=== PATIENT | female | born 1990 | race Caucasian/White ===

== ENCOUNTER 2016-10-05 19:03 | Emergency (ER) | payer OTHER ==
--- NOTE | 2016-10-05 19:16 | PDOC ---
[id number] No Limitations - History of Present Illness Initial Comments: 10/05/16 19:44 The patient is a 26 year old female, with no significant past medical history, who presents today complaining of 3 days of fever, cough, body aches, and chills. She reports that the dry cough progressed into a productive cough with clear sputum today.She reports throat pain that is burning and radiates to the ears. She has been taking Tylenol every 4 hours to control the fever. Her last dose was at 3:00pm. She has not had a flu shot this year. Denies vomiting, diarrhea. Denies abdominal pain. Allergies: none reported ROS General: +fever, chills, body aches. No weakness, no weight loss HEENT: +sore throat, ear pain. No change in vision. CardioVascular: No chest pain or shortness of breath Respiratory:+productive cough. No wheezing. Gastrointestinal: no nausea, vomiting, diarrhea or constipation, No rectal bleeding Genitourinary: No dysuria, hematuria, or frequency Musculoskeletal: No joint or muscle pain or swelling Neurologic: No headache, vertigo, dizziness or loss of consciousness Psychiatric: nor depression Skin: No rashes or easy bruising Endocrine: no increased thirst or abnormal weight change Allergic: no skin or latex allergy All other systems reviewed and normal Physical Exam General: Well-nourished well-developed individual, no acute distress HEENT: Nasal congestion. Throat: tonsils enlarged with posterior oral pharynx erythema. No exudate. No lymphadenopathy. Neck: Supple, no meningeal signs, no lymphadenopathy Eyes::Pupils equal reactive and round, extraocular motion intact Chest: Nontender to palpation Cardiac: S1-S2 normal, regular rate and rhythm, no murmurs rubs or gallops Respiratory: Lungs clear to auscultation bilateral Extremities: Warm, dry, no cyanosis, clubbing, or edema Skin: No rashes Neuro: Alert and oriented x3, nonfocal exam, grossly intact, normal gait Psych: Normal mood and affect <Landy Xiao - Last Filed: 10/05/16 19:45> - General History Source: Patient Exam Limitations: No Limitations - History of Present Illness Initial Comments: 10/05/16 20:42 A portion of this note was documented by scribe services under my direction. I have reviewed the details of the note, within reason, and agree with the documentation. The case summary and management plan written by me. Assessment and plan: This is a 26-year-old female comes in with upper respiratory/influenza like illness symptoms. Patient did not get her flu shot however she is 3 days postop to symptoms so is not a candidate for Tamiflu. Patient's exam was otherwise normal with the exception of some enlarged tonsils but no exudate or lymphadenopathy. Patient most likely has a viral upper respiratory tract illness but could also have influenza. discussed the importance of supportive care for her symptoms including staying well hydrated, Tylenol or Motrin for fevers and body aches and follow-up with her doctor in 1 week if not improved <Shayy Golden I - Last Filed: 10/05/16 20:44> - General Chief Complaint: Respiratory Stated Complaint: FEVER COUGH SINCE THURSDAY Time Seen by Provider: 10/05/16 19:15 Past History <Landy Xiao - Last Filed: 10/05/16 19:45> - Past Medical History Asthma: Yes Cardiac Disorders: No Diabetes: No HTN: No - Reproductive History (#): 4 Para: 3 Therapeutic (s) & number: Yes (1) - Immunization History Td Vaccination: No TDAP Vaccination: No Immunization Up to Date: No - Psycho/Social/Smoking Cessation Hx Anxiety: No Suicidal Ideation: No Smoking Status: No Smoking History: Never smoked Have you smoked in the past 12 months: No Number of Cigarettes Smoked Daily: 0 Information on smoking cessation initiated: No Hx Alcohol Use: No Drug/Substance Use Hx: No Substance Use Type: None <Shayy Golden I - Last Filed: 10/05/16 20:44> - Past Medical History Allergies/Adverse Reactions: Allergies Allergy/AdvReac Type Severity Reaction Status Date / Time No Known Allergies Allergy Verified 10/05/16 19:05 Home Medications: Ambulatory Orders Benzonatate [Tessalon Pearls -] 100 mg PO TID #21 capsule 10/05/16 *Physical Exam - Vital Signs Last Vital Signs Temp Pulse Resp BP Pulse Ox 98.6 F 86 16 99/70 98 10/05/16 19:06 10/05/16 19:06 10/05/16 19:06 10/05/16 19:06 10/05/16 19:06 <Landy Xiao - Last Filed: 10/05/16 19:45> - Vital Signs Last Vital Signs Temp Pulse Resp BP Pulse Ox 98.6 F 86 16 99/70 98 10/05/16 19:06 10/05/16 19:06 10/05/16 19:06 10/05/16 19:06 10/05/16 19:06 <Shayy Golden I - Last Filed: 10/05/16 20:44> *DC/Admit/Observation/Transfer - Attestations Scribe Attestion: 10/05/16 19:46 Documentation prepared by KATINA Weeks, acting as medical office technologist for Shayy Golden MD. <Landy Xiao - Last Filed: 10/05/16 19:45> - Discharge Dispostion Admit: No <Shayy Golden I - Last Filed: 10/05/16 20:44> Diagnosis at time of Disposition: Influenza-like illness - Discharge Dispostion Disposition: HOME Condition at time of disposition: Stable - Prescriptions Prescriptions: Benzonatate [Tessalon Pearls -] 100 mg PO TID #21 capsule - Patient Instructions Printed Discharge Instructions: Influenza Additional Instructions: For the cough take Tessalon Perles as prescribed. Stay well hydrated and get plenty or rest For the fever body aches and chills alternate Tylenol with ibuprofen every 3 hours if needed Return to the emergency department immediately with ANY new, persistent or worsening symptoms. Continue any medications as previously prescribed by your physician. You should follow up with your primary doctor as soon as possible regarding today's emergency department visit. . Please make sure your doctor reviews the results of your emergency evaluation. Thank you for coming to the Emergency Department today for your care. It was a pleasure to see you today. Please note that your evaluation is INCOMPLETE until you follow-up with your doctor.
[2016-10-05 20:00] VITALS: BP 99/70; PULSE 86; TEMP 98.6; BMI 24.5
== END 2016-10-05 19:27 | disposition home or self-care (01) ==
LOC: FER 19:03
DX: J11.1 Influenza due to unidentified influenza virus with other respiratory manifestations (principal)
CPT/HCPCS: 99281-25

== ENCOUNTER 2017-12-12 14:15 | Emergency (ER) | payer OTHER ==
--- NOTE | 2017-12-12 14:32 | PDOC ---
History of Present Illness - General History Source: Patient Exam Limitations: No Limitations - History of Present Illness Initial Comments: 12/12/17 15:31 The patient is a 27 year old female with no significant PMH who presents to the emergency department with vaginal spotting for 1 day. The patient reports that she went to her first OB appointment yesterday to get blood work. She reports that when she went home she noticed that she had some vaginal discharge that's brown in color. The patient reports that her last period was 5 weeks ago. The patient states that she took a positive at home test 1 week ago. The patient reports that she has had 5 prior pregnancies. She reports that her last was an emergency section but otherwise, all pregnancies were normal and full term. The patient also reports breast pain and cramping. The patient denies any fever, chills, nausea, vomit, diarrhea, constipation or urinary complaints. She denies any chest pain, shortness of breath, headache and dizziness. The patient denies any other complaints. <Darrell Coto - Last Filed: 12/12/17 15:31> <Candy Moya - Last Filed: 12/13/17 07:42> - General Chief Complaint: ,Possible Stated Complaint: , SPOTTING Time Seen by Provider: 12/12/17 14:31 Past History <Darrell Coto - Last Filed: 12/12/17 15:31> - Past Medical History Asthma: Yes Cardiac Disorders: No Diabetes: No HTN: No - Reproductive History (#): 4 Para: 3 Therapeutic (s) & number: Yes (1) - Immunization History Td Vaccination: No TDAP Vaccination: No Immunization Up to Date: No - Suicide/Smoking/Psychosocial Hx Smoking Status: No Smoking History: Never smoked Have you smoked in the past 12 months: No Number of Cigarettes Smoked Daily: 0 Hx Alcohol Use: No Drug/Substance Use Hx: No Substance Use Type: None <Candy Moya - Last Filed: 12/13/17 07:42> - Past Medical History Allergies/Adverse Reactions: Allergies Allergy/AdvReac Type Severity Reaction Status Date / Time No Known Allergies Allergy Verified 12/12/17 14:28 Home Medications: Ambulatory Orders Vit,Steven 74/Iron/Folic [ Low Iron Tablet] 1 each PO DAILY Review of Systems - Review of Systems Able to Perform ROS?: Yes Comments:: 12/12/17 15:31 GENERAL/CONSTITUTIONAL: No fever or chills. No weakness. HEAD, EYES, EARS, NOSE AND THROAT: No change in vision. No ear pain or discharge. No sore throat. CARDIOVASCULAR: No chest pain or shortness of breath. RESPIRATORY:(+)breast pain. No cough, wheezing, or hemoptysis. GASTROINTESTINAL:(+)stomach cramping. No nausea, vomiting, diarrhea or constipation. GENITOURINARY:(+)vaginal spotting . No dysuria, frequency, or change in urination. MUSCULOSKELETAL: No joint or muscle swelling or pain. No neck or back pain. SKIN: No rash NEUROLOGIC: No headache, vertigo, loss of consciousness, or change in strength/ sensation. ENDOCRINE: No increased thirst. No abnormal weight change. HEMATOLOGIC/LYMPHATIC: No anemia, easy bleeding, or history of blood clots. ALLERGIC/IMMUNOLOGIC: No hives or skin allergy. <Darrell Coto - Last Filed: 12/12/17 15:31> *Physical Exam - Vital Signs Last Vital Signs Temp Pulse Resp BP Pulse Ox 99.2 F 70 16 105/74 100 12/12/17 14:25 12/12/17 14:25 12/12/17 14:25 12/12/17 14:25 12/12/17 14:25 - Physical Exam Comments: 12/12/17 15:31 GENERAL: Awake, alert, and fully oriented, in no acute distress HEAD: No signs of trauma EYES: PERRLA, EOMI, sclera anicteric, conjunctiva clear ENT: Auricles normal inspection, hearing grossly normal, nares patent, oropharynx clear without exudates. Moist mucosa NECK: Normal ROM, supple, no lymphadenopathy, JVD, or masses LUNGS: Breath sounds equal, clear to auscultation bilaterally. No wheezes, and no crackles HEART: Regular rate and rhythm, normal S1 and S2, no murmurs, rubs or gallops ABDOMEN: Soft, nontender, normoactive bowel sounds. No guarding, no rebound. No masses EXTREMITIES: Normal range of motion, no edema. No clubbing or cyanosis. No cords, erythema, or tenderness NEUROLOGICAL: Cranial nerves II through XII grossly intact. Normal speech, normal gait SKIN: Warm, Dry, normal turgor, no rashes or lesions noted. <Darrell Coto - Last Filed: 12/12/17 15:31> - Physical Exam Female Pelvic Exam: positive: normal external exam, cervical os closed, normal adnexa, normal size ovaries, vaginal bleeding (trace amount of brownish blood in the vaginal vault). negative: CMT, discharge, lesions, Bartholin mass, Scalene Gland, adnexal tenderness, Urethra, other <Candy Moya - Last Filed: 12/13/17 07:42> ED Treatment Course - LABORATORY CBC & Chemistry Diagram: 12/12/17 14:55 12/12/17 14:55 - ADDITIONAL ORDERS Additional order review: Laboratory Results 12/12/17 12/12/17 15:00 14:55 Sodium 138 Potassium 3.7 Chloride 106 Carbon Dioxide 26 Anion Gap 6 L BUN 9 Creatinine < 0.8 Creat Clearance w eGFR > 60 Random Glucose 103 Calcium 9.0 Total Bilirubin < 0.5 AST 15 ALT 11 Alkaline Phosphatase 68 Total Protein 7.0 Albumin 4.0 Urine HCG, Qual Negative 12/12/17 14:55 RBC 4.36 MCV 84.6 MCHC 34.2 RDW 13.6 MPV 9.0 Neutrophils % 62.0 Lymphocytes % 30.3 Monocytes % 5.5 Eosinophils % 1.7 Basophils % 0.5 <Darrell Coto - Last Filed: 12/12/17 15:31> - LABORATORY CBC & Chemistry Diagram: 12/12/17 14:55 12/12/17 14:55 <Candy Moya - Last Filed: 12/13/17 07:42> Medical Decision Making - Medical Decision Making 12/12/17 16:59 Pt presents to the ED complaining of vaginal spotting. 5 weeks by dates. Differential included ectopic, missed AB, threatened . U preg is negative, serum bhcg is 10. No IUP seen on transvaginal US. Likely missed or very early miscarriage. PAtient has follow up with her Ob on Thursday. Will instruct her to follow up with her OB and to return to the ED for new or worsening symptoms. <Candy Moya - Last Filed: 12/13/17 07:42> *DC/Admit/Observation/Transfer - Attestations Scribe Attestion: 12/12/17 15:32 Documentation prepared by Darrell Coto, acting as medical technologist microbiology for Candy Moya MD. <Darrell Coto - Last Filed: 12/12/17 15:31> - Discharge Dispostion Decision to Admit order: No <Candy Moya - Last Filed: 12/13/17 07:42> Diagnosis at time of Disposition: Dysfunctional uterine bleeding, Miscarriage - Discharge Dispostion Disposition: HOME Condition at time of disposition: Good - Referrals Referrals: Lilly Bynum MD [Primary Care Provider] - - Patient Instructions Printed Discharge Instructions: DI for Miscarriage Additional Instructions: return immediately to the ED for severe pain, heavy vaginal bleeding soaking two pads back to back in an hour for more than 2 hours straight, other new or worsening symptoms. Do not have intercourse or put anything else in your vagina ( ie tampons) until you see your industrial engineer. - Post Discharge Activity
[2017-12-12 14:40] VITALS: BP 105/74; PULSE 70; TEMP 99.2; BMI 24.9
[2017-12-12 15:16] LABS: BASO % 0.5 % (0-2.0); EOS % 1.7 % (0-4.5); HEMATOCRIT 36.9 % (32.4-45.2); HEMOGLOBIN 12.6 GM/dl (10.7-15.3); LYMPH % 30.3 % (8-40); MCH 28.9 pg (25.7-33.7); MCHC 34.2 g/dl (32.0-36.0); MEAN CELL VOLUME 84.6 fl (80-96); MONO % 5.5 % (3.8-10.2); PLATELET COUNT 216 K/MM3 (134-434); RBC 4.36 M/mm3 (3.60-5.2); RDW 13.6 % (11.6-15.6); WHITE BLOOD COUNT 5.4 K/mm3 (4.0-10.8)
[2017-12-12 15:24] LABS: ALK PHOS 68 U/L (32-92); ANION GAP 6 (8-16); BLOOD UREA NITROGEN 9 mg/dl (7-18); CHLORIDE 106 mmol/L (98-107); CO2 26 mmol/L (22-28); GLUCOSE,RANDOM 103 mg/dl (74-106); POTASSIUM 3.7 mmol/L (3.5-5.1); SGOT/AST 15 U/L (10-42); SGPT/ALT 11 U/L (10-40); SODIUM 138 mmol/L (136-145)
[2017-12-12 15:28] LABS: BILIRUBIN,TOTAL < 0.5 mg/dl (0.2-1.0); CREATININE < 0.8 mg/dl (0.6-1.3)
== END 2017-12-12 17:19 | disposition home or self-care (01) ==
LOC: FER 14:15
DX: O03.9 Complete or unspecified spontaneous abortion without complication (principal); N93.8 Other specified abnormal uterine and vaginal bleeding
CPT/HCPCS: 36415; 76817-TC; 80053; 84702; 84703; 85025; 86850; 86900; 86901; 99282-25

== ENCOUNTER 2018-09-18 08:40 | Inpatient (IN) | payer OTHER ==
[2018-09-18] MEDS ORDERED: DEXTROSE 5%-LACTATED RINGERS 1,000 ML IV SCH ×2 (08:50→10:00)
[2018-09-18] MEDS ORDERED: AMPICILLIN - 2 GM in SODIUM CHLORIDE 100 ML IVPB ONE (09:00)
[2018-09-18] MEDS ORDERED: AMPICILLIN SODIUM 2 GM VIAL ONE (09:05)
[2018-09-18 09:26] VITALS: BMI 27.3
[2018-09-18] MEDS ORDERED: LIDOCAINE HCL 1% PRESERVATIVE FREE - 30ML VIAL ONE (09:28)
[2018-09-18] MEDS ORDERED: OXYTOCIN 20 UNITS in 0.9% NS 20 UNIT/1,000 ML INFUS.BAG IV ONE (09:29)
--- NOTE | 2018-09-18 09:58 | HP ---
Past Medical History - Admission Chief Complaint: Labor pain History of Present Illness: 28 yo @ $0 weeks gestation, EDC 09/15/18, admitted for labor pain. History Source: Patient Limitations to Obtaining History: No Limitations - Past Medical History ...: 6 ...Para: 3 ...Term: 3 ...: 0 ...Spon : 1 ...Induced : 1 ...Multiple Gestation: 0 ...EDC by Misti: 09/15/18 - Past Surgical History Past Surgical History: Yes: Hx Myomectomy: No Hx Transabdominal Cerclage: No - Smoking History Smoking history: Never smoked Have you smoked in the past 12 months: No Aproximately how many cigarettes per day: 0 - Alcohol/Substance Use Hx Alcohol Use: No - Social History Usual Living Arrangement: Yes: With Significant Other History of Recent Travel: No Home Medications - Allergies Allergies/Adverse Reactions: Allergies Allergy/AdvReac Type Severity Reaction Status Date / Time No Known Allergies Allergy Verified 09/18/18 09:12 - Home Medications Home Medications: Ambulatory Orders Vit,Steven 74/Iron/Folic [ Low Iron Tablet] 1 each PO DAILY Family Disease History - Family Disease History Family History: Unremarkable Review of Systems - Review of Systems Constitutional: reports: No Symptoms Eyes: reports: No Symptoms HENT: reports: No Symptoms Neck: reports: No Symptoms Cardiovascular: reports: No Symptoms Respiratory: reports: No Symptoms Gastrointestinal: reports: No Symptoms Genitourinary: reports: Pain Breasts: reports: No Symptoms Reported Musculoskeletal: reports: No Symptoms Integumentary: reports: No Symptoms Neurological: reports: No Symptoms Endocrine: reports: No Symptoms Hematology/Lymphatic: reports: No Symptoms Psychiatric: reports: No Symptoms Pain Intensity: 8 Physical Exam - Maternity Vital Signs: Vital Signs Temperature 97.8 F 09/18/18 08:40 Pulse Rate 74 09/18/18 08:40 Respiratory Rate 18 09/18/18 08:40 Blood Pressure 111/61 09/18/18 08:40 O2 Sat by Pulse Oximetry (%) Constitutional: Yes: Well Nourished Eyes: Yes: Conjunctiva Clear HENT: Yes: Atraumatic Neck: Yes: Supple Cardiovascular: Yes: Regular Rate and Rhythm Lungs: Clear to auscultation - Abdominal Exam/OB Number of Fetuses: Single Presentation: Vertex - Vaginal Exam/OB Dilatation (cm): 8 Effacement (%): 100 Presentation: Vertex/Position Station: 0 - Physical Exam ...Motor Strength: WNL Psychiatric: Yes: Alert, Oriented Problem List - Problems (1) Pain during labor Code(s): O99.89 - OTH DISEASES AND CONDITIONS COMPL PREG/CHLDBRTH; R52 - PAIN, UNSPECIFIED Assessment/Plan Active labor Admit to L&D Analgesia as needed Anticipate
[2018-09-18] MEDS ORDERED: BISACODYL 10 MG SUPP.RECT RC PRN (10:01)
[2018-09-18] MEDS ORDERED: WITCH HAZEL 50% (TUCKS) 40 PAD/JAR PAD TP PRN (10:01)
[2018-09-18] MEDS ORDERED: BENZOCAINE 28 GM HEMORRHOIDAL OINTMENT TP PRN (10:01)
[2018-09-18] MEDS ORDERED: BENZOCAINE 20% 57 GM BOTTLE TP PRN (10:01)
[2018-09-18] MEDS ORDERED: METHYLERGONOVINE MALEATE 0.2 MG/1 ML AMP IM PRN (10:01)
--- NOTE | 2018-09-18 10:01 | PN ---
Delivery - Delivery Vaginal Delivery: Spontaneous Type of Anesthesia: Local Episiotomy/Laceration: Perineal Extension/lac, 2nd degree EBL (cc): 250 Delivery, Single - Stages of Labor Date 1st Stage Initiatied: 09/18/18 Time 1st Stage Initiated: 04:00 Date 2nd Stage Initiated: 09/18/18 Time 2nd Stage Initiated: 09:20 Date of Delivery: 09/18/18 Time of Delivery: 09:22 Time Placenta Delivered: :25 - Condition of Binder Stripper Machine/Document Specialist Present: No Infant Gender: Male Position: Left, OA Total Hours ROM (Hrs/Mins): 5MIN - 1 Minute Total Score: 9 5 Minutes Total Score: 9 - [place] Feeding Plan Initial Plan: Exclusive throughout hospitalization Remarks - Remarks Remarks: Normal spontaneous vaginal delivery of a live infant over second degree laceration. Nose / Oropharynx suctioned @ perineum. Nuchal cord x 1 clamped and cut. Placenta expelled spontaneously intact. Laceration repaired with 2.0 chromic. Mother in stable condition.
[2018-09-18] MEDS ORDERED: OXYTOCIN 20 UNITS in 0.9% NS 20 UNIT/1,000 ML INFUS.BAG IV SCH (10:15)
[2018-09-18] MEDS: IBUPROFEN 600 MG TABLET (FP) PO PRN ×2 (11:15→20:54)
[2018-09-18] MEDS: ACETAMINOPHEN 325 MG TABLET (FP) PO PRN ×2 (11:16→20:55)
[2018-09-18 12:18] LABS: BASO % 0.1 % (0-2.0); EOS % 0.1 % (0-4.5); HEMATOCRIT 35.2 % (32.4-45.2); HEMOGLOBIN 12.1 GM/dL (10.7-15.3); LYMPH % 8.3 % (8-40); MCH 29.3 pg (25.7-33.7); MCHC 34.5 g/dl (32.0-36.0); MEAN PLT VOLUME 9.6 fl (7.5-11.1); MONO % 2.9 % (3.8-10.2); NEUT % 88.6 % (42.8-82.8); PLATELET COUNT 180 K/MM3 (134-434); RBC 4.14 M/mm3 (3.60-5.2); RDW 14.6 % (11.6-15.6); WHITE BLOOD COUNT 11.3 K/mm3 (4.0-10.0)
[2018-09-18 12:40] LABS: INR 0.92 (0.83-1.09); PROTHROMBIN TIME (PATIENT) 10.8 SEC (9.7-13.0)
[2018-09-18 12:43] LABS: ACTIVATED PTT 26.6 SECONDS (25.2-36.5)
[2018-09-18 12:57] LABS: ALBUMIN 2.6 g/dl (3.4-5.0); ALK PHOS 254 U/L (45-117); ANION GAP 9 MMOL/L (8-16); BILIRUBIN,TOTAL 0.5 mg/dL (0.2-1); BLOOD UREA NITROGEN 8 mg/dL (7-18); CALCIUM 8.1 mg/dL (8.5-10.1); CHLORIDE 106 mmol/L (98-107); CO2 21 mmol/L (21-32); CREATININE 0.7 mg/dL (0.55-1.3); GLUCOSE,RANDOM 104 mg/dL (74-106); POTASSIUM 3.5 mmol/L (3.5-5.1); SGOT/AST 21 U/L (15-37); SGPT/ALT 36 U/L (13-61); SODIUM 137 mmol/L (136-145); TOT PROT 6.4 g/dl (6.4-8.2)
[2018-09-18] MEDS ORDERED: AMPICILLIN - 1 GM in SODIUM CHLORIDE 100 ML IVPB SCH (13:00)
[2018-09-18] MEDS: FERROUS SO4 325 MG TABLET (FP) PO SCH (21:02)
[2018-09-19 07:20] LABS: BASO % 0.4 % (0-2.0); EOS % 0.5 % (0-4.5); HEMATOCRIT 29.7 % (32.4-45.2); HEMOGLOBIN 10.2 GM/dL (10.7-15.3); LYMPH % 20.1 % (8-40); MCHC 34.2 g/dl (32.0-36.0); MEAN CELL VOLUME 84.6 fl (80-96); MONO % 5.7 % (3.8-10.2); NEUT % 73.3 % (42.8-82.8); PLATELET COUNT 169 K/MM3 (134-434); RDW 14.3 % (11.6-15.6); WHITE BLOOD COUNT 9.3 K/mm3 (4.0-10.0)
--- NOTE | 2018-09-19 07:55 | PN ---
Post Progress Note - Subjective Subjective: 28 yo Para 4, status postvaginal delivery, seen and evaluated. Doing well. Post Day: 1 Type of Delivery: Vital Signs: Vital Signs Temperature 98.3 F 09/19/18 06:00 Pulse Rate 80 09/19/18 06:00 Respiratory Rate 18 09/19/18 06:00 Blood Pressure 97/64 09/19/18 06:00 O2 Sat by Pulse Oximetry (%) 100 09/18/18 10:30 Breast Exam: Yes: Soft Uterus: Yes: Fundus Firm Abdomen/GI: Yes: Abdomen soft, Tolerating PO Lochia: Yes: Rubra Lochia, amount: Moderate Extremities: Yes: Calves non-tender Perineum: Yes: Laceration (Healing) Activity: Ambulating - Labs Labs: CBC WBC 9.3 K/mm3 (4.0-10.0) 09/19/18 06:30 RBC 3.50 M/mm3 (3.60-5.2) L 09/19/18 06:30 Hgb 10.2 GM/dL (10.7-15.3) L 09/19/18 06:30 Hct 29.7 % (32.4-45.2) L D 09/19/18 06:30 MCV 84.6 fl (80-96) 09/19/18 06:30 MCH 29.0 pg (25.7-33.7) 09/19/18 06:30 MCHC 34.2 g/dl (32.0-36.0) 09/19/18 06:30 RDW 14.3 % (11.6-15.6) 09/19/18 06:30 Plt Count 169 K/MM3 (134-434) 09/19/18 06:30 MPV 9.0 fl (7.5-11.1) 09/19/18 06:30 Absolute Neuts (auto) 6.8 K/mm3 (1.5-8.0) 09/19/18 06:30 Neutrophils % 73.3 % (42.8-82.8) 09/19/18 06:30 Lymphocytes % 20.1 % (8-40) D 09/19/18 06:30 Monocytes % 5.7 % (3.8-10.2) D 09/19/18 06:30 Eosinophils % 0.5 % (0-4.5) D 09/19/18 06:30 Basophils % 0.4 % (0-2.0) D 09/19/18 06:30 Nucleated RBC % 0 % (0-0) 09/19/18 06:30 Problem List - Problems (1) Pain during labor Code(s): O99.89 - OTH DISEASES AND CONDITIONS COMPL PREG/CHLDBRTH; R52 - PAIN, UNSPECIFIED (2) Status post normal vaginal delivery Code(s): UQA1845 - Assessment/Plan Status post vaginal delivery Stable Continue routine care
[2018-09-19] MEDS: PRENATAL VITAMINS W/ FOLIC ACID TABLET (FP) PO SCH (09:31)
[2018-09-19] MEDS: FERROUS SO4 325 MG TABLET (FP) PO SCH ×2 (09:31→21:27)
[2018-09-19] MEDS: IBUPROFEN 600 MG TABLET (FP) PO PRN (13:53)
[2018-09-19] MEDS: ACETAMINOPHEN 325 MG TABLET (FP) PO PRN (13:54)
[2018-09-19] MEDS ORDERED: SENNOSIDES/DOCUSATE COMBO (SENNA PLUS) TABLET (UD) PO PRN (22:00)
[2018-09-20 00:06] LABS: HBsAG SCREEN Negative (Negative)
[2018-09-20] MEDS: ACETAMINOPHEN 325 MG TABLET (FP) PO PRN (07:56)
[2018-09-20] MEDS: IBUPROFEN 600 MG TABLET (FP) PO PRN (07:58)
[2018-09-20 08:26] VITALS: TEMP 98.6
[2018-09-20 08:27] VITALS: BP 97/63; PULSE 81
[2018-09-20] MEDS: PRENATAL VITAMINS W/ FOLIC ACID TABLET (FP) PO SCH (09:23)
[2018-09-20] MEDS: FERROUS SO4 325 MG TABLET (FP) PO SCH (09:23)
--- NOTE | 2018-09-20 10:13 | DS ---
Physical Exam-CHILD CARE CENTRE DIRECTOR Vital Signs: Vital Signs Temperature 98.6 F 09/20/18 08:00 Pulse Rate 81 09/20/18 08:00 Respiratory Rate 18 09/20/18 08:00 Blood Pressure 97/63 09/20/18 08:00 O2 Sat by Pulse Oximetry (%) 100 09/18/18 10:30 Constitutional: Yes: Well Nourished Eyes: Yes: Conjunctiva Clear HENT: Yes: Atraumatic Neck: Yes: Supple Cardiovascular: Yes: Regular Rate and Rhythm Respiratory: Yes: Regular Gastrointestinal: Yes: Normal Bowel Sounds Pelvis: Yes: WNL External Genitalia: Yes: Normal Cervix: Yes: Normal ....Post : Yes: Uterus firm, Moderate lochia serosa Breast(s): Yes: WNL Musculoskeletal: Yes: WNL Extremities: Yes: WNL Neurological: Yes: Alert, Oriented ...Motor Strength: WNL Psychiatric: Yes: Alert, Oriented Labs: CBC, BMP 09/19/18 06:30 09/18/18 11:00 Delivery - Delivery Vaginal Delivery: Spontaneous Type of Anesthesia: Local Episiotomy/Laceration: Perineal Extension/lac, 2nd degree EBL (cc): 250 Delivery, Single - Stages of Labor Date 1st Stage Initiatied: 09/18/18 Time 1st Stage Initiated: 04:00 Date 2nd Stage Initiated: 09/18/18 Time 2nd Stage Initiated: 09:20 Date of Delivery: 09/18/18 Time of Delivery: 09:22 Time Placenta Delivered: 09:25 - Condition of Fur Dressing Supervisor/Veneer Trimmer Present: No Infant Gender: Male Weight: 6 lb 13 oz Position: Left, OA Total Hours ROM (Hrs/Mins): 5MIN - 1 Minute Total Score: 9 5 Minutes Total Score: 9 - [place] Feeding Plan Initial Plan: Exclusive throughout hospitalization Discharge Summary Reason For Visit: ADMIT LABOR Current Active Problems Pain during labor (Acute) Status post normal vaginal delivery (Acute) Procedures: Principal: Normal spontaneous vaginal delivery Hospital Course: Routine care Condition: Good - Instructions Diet, Activity, Other Instructions: Regular diet No douching, no sexual intercourse x 6 weeks. F/U in clinic in 6 weeks Disposition: HOME - Home Medications Comprehensive Discharge Medication List: Ambulatory Orders Vit,Steven 74/Iron/Folic [ Low Iron Tablet] 1 each PO DAILY
[2018-09-20 16:23] LABS: RUBELLA IgG ANTIBODY 1.04 index (Immune >0.99)
== END 2018-09-20 12:55 | disposition home or self-care (01) | DRG 560 ==
LOC: UNDOADMIN 08:40 → JLDR 08:40 → J3W 11:07
PROVIDERS: ADMIT Obstetrics & Gynecology; ATTEND Obstetrics & Gynecology
PROC: 0KQM0ZZ Repair Perineum Muscle, Open Approach (ICD-10-PCS; principal; 2018-09-18)
PROC: 10E0XZZ Delivery of Products of Conception, External Approach (ICD-10-PCS; 2018-09-18)
DX: O69.81X0 Labor and delivery complicated by cord around neck, without compression, not applicable or unspecified (principal); O70.1 Second degree perineal laceration during delivery; Z3A.40 40 weeks gestation of pregnancy; Z37.0 Single live birth
CPT/HCPCS: 36415; 59409; 80053; 85025; 85610; 85730; 86593; 86762; 86850; 86900; 86901; 87340